=== PATIENT | female | born 2000 | race Caucasian/White ===

== ENCOUNTER 2024-11-28 14:57 | Outpatient (CLI) | payer BC, SELFPAY | END 2024-11-28 14:58 | disposition home or self-care (01) | LOC: NFLDREF 12-05 01:00 | PROVIDERS: Visit Provider Physician Assistant | DX: R30.0 Dysuria (principal) | CPT/HCPCS: 87086 ==

== ENCOUNTER 2025-02-21 16:30 | Outpatient (CLI) | payer BC, SELFPAY | END 2025-02-21 16:31 | disposition home or self-care (01) | PROVIDERS: Visit Provider Emergency Medicine | DX: E66.1 Drug-induced obesity (principal); F41.8 Other specified anxiety disorders | CPT/HCPCS: 82728; 84443 ==

== ENCOUNTER 2025-04-30 09:27 | Outpatient (CLI) | payer BC, SELFPAY | END 2025-04-30 09:28 | disposition home or self-care (01) | LOC: NFLDREF 09:28 | PROVIDERS: Visit Provider Internal Medicine | DX: D50.9 Iron deficiency anemia, unspecified (principal) | CPT/HCPCS: 82728 ==

== ENCOUNTER 2025-07-05 10:11 | Outpatient (CLI) | payer BC, SELFPAY ==
[2025-07-05 10:59] LABS: PCR FLU A Negative PCR FLU A (Negative); PCR FLU B Negative PCR FLU B (Negative); PCR RSV Negative PCR RSV (Negative); SARS PCR* Negative SARS-CoV-2 (Negative)
== END 2025-07-05 10:12 | disposition home or self-care (01) ==
DX: J02.9 Acute pharyngitis, unspecified (principal)
CPT/HCPCS: 87631

== ENCOUNTER 2025-08-13 14:09 | Outpatient (CLI) | payer BC, SELFPAY | END 2025-08-13 14:10 | disposition home or self-care (01) | PROVIDERS: Visit Provider Family Medicine | DX: D50.8 Other iron deficiency anemias (principal); N92.0 Excessive and frequent menstruation with regular cycle | CPT/HCPCS: 82728; 83540; 83550 ==